=== PATIENT | female | born 1950 | race Asian ===

== ENCOUNTER 2020-04-25 07:47 | Outpatient (CLI) | payer BC, OTHER ==
[2020-04-25 08:50] LABS: POTASSIUM 4.1 mmol/L (3.6-5.2)
== END 2020-04-25 19:20 | disposition home or self-care (01) ==
LOC: LABW 07:47
PROVIDERS: Internal Medicine
DX: E11.9 Type 2 diabetes mellitus without complications (principal); E78.49 Other hyperlipidemia
CPT/HCPCS: 36415; 80053; 80061; 83036

== ENCOUNTER 2020-10-31 08:11 | Outpatient (CLI) | payer BC, OTHER ==
[2020-10-31 08:59] LABS: PLATELET COUNT 249 K/uL (152-353)
[2020-10-31 09:16] LABS: POTASSIUM 4.3 mmol/L (3.6-5.2)
== END 2020-10-31 19:55 | disposition home or self-care (01) ==
LOC: LABW 08:11
PROVIDERS: ATTEND Internal Medicine
DX: E11.9 Type 2 diabetes mellitus without complications (principal)
CPT/HCPCS: 36415; 80053; 80061; 81000; 83036; 84439; 84443; 85027

== ENCOUNTER 2020-11-02 07:51 | Outpatient (CLI) | payer BC, OTHER | END 2020-11-02 19:19 | disposition home or self-care (01) | LOC: RAD 07:51 | PROVIDERS: ATTEND Internal Medicine | DX: M25.562 Pain in left knee (principal); M54.5 Low back pain ==